=== PATIENT | male | born 2005 | race Caucasian/White ===

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

== ENCOUNTER 2024-11-01 16:00 | Emergency (ER) | payer OTHER, SELFPAY ==
[2024-11-01 16:04] VITALS: BP 143/76; PULSE 86; TEMP 36.7; O2SAT 100
--- OUTSIDE RECORDS SUMMARY | 2024-11-01 16:05 | XMS_ITS | Clinical Summary ---
Author Organization [facility] Address [address] [place] [address] Phone Care Team Providers Care Art Therapist Name Role Phone Susie Carcamo MD Primary Care Provider Allergies No known active allergies Medications No known medications Immunizations Immunization Administration Dates Next Due (ADACEL/BOOSTRIX)(10 YR UP) TDAP VACCINE, 0.5ML, IM 09/03/2022 Social History Tobacco Use Types Packs/Day Years Used Date Smoking Tobacco: Never Assessed Feeling Safe Answer Date Recorded Are you in a relationship wi th someone who hurts you emotionally and/or physically? No 09/03/2022 Sex and Gender Information Value Date Recorded Sex Assigned at Not on file Legal Sex Male 12:57 PM CDT Gender Identity Not on file Sexual Orientation Not on file Last Filed Vital Signs Vital Sign Reading Time Taken Comments Blood Pressure 100/74 09/03/2022 1:05 PM CDT Pulse 104 09/03/2022 1:05 PM CDT Temperature 36.7 C (98 F) 09/03/2022 1:05 PM CDT Respiratory Rate 17 09/03/2022 1:05 PM CDT Oxygen Saturation 100% 09/03/2022 1:05 PM CDT Inhaled Oxygen Concentration - - Weight 108.9 kg (240 lb) 09/03/2022 1:05 PM CDT Height 180.3 cm (5' 11 ) 09/03/2022 1:05 PM CDT Body Mass Index 33.47 09/03/2022 1:05 PM CDT Plan of Treatment Health Maintenance Due Date Last Done Comments CHLAMYDIA SCREENING (ANNUAL) 11-24 YEARS 09/25/2015 HPV VACCINES (1 - Male 3-dose series) 09/25/2019 HEPATITIS B VACCINES (1 of 3 - 19+ 3-dose series) 09/15 INFLUENZA VACCINE (#1) 2024 DTAP/TDAP/TD VACCINES (2 - Td or Tdap) 09/03/2032 Insurance RX INFOCROSSING Medicaid HEALTH PLAN MEDICAID HEALTH PLAN MEDICAID Care Teams Art Therapist Relationship Specialty Start Date End Date Susie Carcamo MD [address] [place] [address] PCP - General Family Practice 09/03/22
[2024-11-01] MEDS: tetanus-dipt-pertussis 0.5 mL SDV IM (16:54)
--- NOTE | 2024-11-01 17:31 | W.ED.WOUNDLC ---
HPI - Wound/Laceration General: Chief Complaint: Wound/Laceration Stated Complaint: left thumb sliced by knife Time Seen by Provider: 11/01/24 16:07 Source: patient Mode of arrival: ambulatory Limitations: no limitations History of Present Illness: Patient is a 19-year-old male who presents the emergency department after slicing his left thumb with a J-[employer] knife. States he was cutting garlic when this happened, it slipped and cut the tip of his left thumb into the nail. There is no gaping wound noted on exam, no active bleeding. Patient states he is just here to make sure it does not need stitches. States unsure if tetanus is up-to-date. No other symptoms. No neurovascular symptoms. Pain controlled at this time. Onset (ago): minute(s) Extremity Location: Left: hand (Thumb) Place: work Patient tetanus UTD: No Context: accidental Associated symptoms: Denies chills, fever(s), nausea or vomiting Related Data Home Medications ?Medication ?Instructions ?Recorded ?Confirmed acetaminophen 500 mg tablet 1,000 mg PO Q6H PRN Pain 04/03/22 10/20/22 Held on 10/04/22. Instructions: Resume on 10/09/22. ibuprofen 200 mg tablet 400 mg PO Q6H PRN Pain 04/03/22 10/20/22 Held on 10/04/22. Instructions: Resume on 10/06/22. Previous Rx's ?Medication ?Instructions ?Recorded cephalexin 500 mg capsule 500 mg PO Q6H 5 days #20 caps 11/01/24 Allergies Allergy/AdvReac Type Severity Reaction Status Date / Time No Known Allergies Allergy Verified 11/01/24 16:09 Review of Systems General: Reports: 10 or more systems reviewed and unremarkable except in HPI and below Const: Denies: fever(s) or chills Card: Denies: chest pain Resp: Denies: dyspnea GI: Denies: abdominal pain, nausea, vomiting or diarrhea Musc: Denies: extremity pain or joint pain Skin/Breast: Reports: new lesions (left thumb lac); Denies: rash, skin pain or skin tenderness Neuro: Denies: headache(s) PFSH ED PFSH: Medical History No significant past medical history Surgical History History of laparoscopic appendectomy 10/04/22 Dr. Duncan No significant past surgical history Family History Denies family history of Clotting disorder Bleeding disorder Social History Smoking and tobacco/nicotine status: never used tobacco/nicotine Physical Exam Const: COMMON NORMALS: no acute distress, average body habitus, patient oriented x3, no limitations, healthy appearing, alert and well nourished HENMT: COMMON NORMALS: normocephalic and atraumatic HEAD & SCALP: normocephalic and atraumatic Neck/C-Spine: COMMON NORMALS: full ROM, no lymphadenopathy, supple and no meningeal signs Resp: COMMON NORMALS: normal respiratory effort, No use of accessory muscles and clear to auscultation bilaterally AUSCULTATION: clear to auscultation bilaterally Cardio: COMMON NORMALS: regular rate and regular rhythm RATE: regular rate RHYTHM: regular rhythm Extremity: COMMON NORMALS: full ROM and capillary refill normal Neuro: COMMON NORMALS: patient oriented x3 SENSORIUM/ORIENTATION: Yes alert MENINGEAL SIGNS: Yes no meningeal signs Skin: COMMON NORMALS: turgor normal NARRATIVE SKIN EXAM: Very small 1 cm laceration to distal left thumb with no active bleeding, nongaping. No foreign body or contamination. There is evidence of superficial laceration minimally into the nail but no articulation with the nailbed and this is not deep. GENERAL SKIN EXAM: turgor normal Course Vital Signs: Vital signs: Vital Signs Temperature 98.1 F 11/01/24 16:04 Pulse Rate 86 11/01/24 16:04 Blood Pressure 143/76 11/01/24 16:04 Pulse Oximetry 100 11/01/24 16:04 Oxygen Delivery Me thod Room Air 11/01/24 16:04 MDM - Wound/Laceration Medical Decision Making This patient presented after slicing the tip of his thumb and into the nail with a bocce knife, though evaluating here it does not appear that it needs any wound closure, instead it is cleansed and dressed appropriately. He describes the mechanism of the injury as a use dirty knife, so prophylactic antibiotics for couple of days will be administered and his tetanus is also updated due to him being unable to tell me when he last had it updated. He had a snake bite a couple of years ago, but do not see evidence in there that he had updated at that time. He is educated on wound care, and discharge at this time. No radiology studies performed this visit Discharge Plan Discharge Patient Disposition: Home Clinical Impression: Laceration of left thumb Condition: Stable Prescriptions: New cephalexin 500 mg capsule 500 mg PO Q6H 5 Days Qty: 20 0RF No Action acetaminophen 500 mg Tablet 1,000 mg PO Q6H PRN (Reason: Pain) ibuprofen 200 mg Tablet 400 mg PO Q6H PRN (Reason: Pain) Discharge Orders: Discharge ED (Routine); Ordered 11/01/24 Ordered By: Manuel Tatum Referrals: Susie Carcamo MD [Primary Care Provider, [facility]] Patient Instructions: Patient Portal & Betty Instructions Activity Restrictions/Additional Instructions: Thumb Laceration Discharge Diagnosis: Superficial left thumb laceration involving the nail, not requiring nail removal or suture closure. Wound Care Instructions: - Keep the wound clean and dry for the first 24 hours. After this, gentle cleansing with soap and water is appropriate. - Apply a thin layer of topical antibiotic ointment (e.g., bacitracin or triple antibiotic) and cover with a non-adherent dressing. Change the dressing daily or if it becomes wet or soiled. A moist wound environment is preferred to optimize healing and reduce infection risk. - Monitor for signs of infection: increasing redness, swelling, warmth, purulent drainage, or worsening pain. If any of these occur, seek prompt medical evaluation. - Avoid submerging the thumb in water (e.g., swimming, dishwashing) until the wound has healed. - Protect the thumb from further trauma. Activity: - Limit activities that may stress or injure the thumb until healing is evident. - Gradually resume normal activities as tolerated. Antibiotic Prophylaxis: - Cephalexin 500 mg orally four times daily has been prescribed. Although the [place] [employer] and recent cohort studies do not recommend routine prophylactic antibiotics for simple, uncomplicated lacerations, this regimen may be considered in select cases based on clinical judgment or specific risk factors. Complete the prescribed course unless adverse effects occur. - Common side effects include gastrointestinal upset and, rarely, allergic reactions. Discontinue and seek care if rash, difficulty breathing, or severe diarrhea develops. Tetanus Prophylaxis: - Tetanus immunization will be updated today per CDC/ACIP guidelines. For wound management, a tetanus toxoid?containing vaccine is indicated if >= years have elapsed since the last dose, or if immunization status is unknown or incomplete. - No tetanus immune globulin is required for this wound type in an immunocompetent patient with an updated vaccine history. Follow-Up: - Return for wound check in 2?3 days or sooner if signs of infection, delayed healing, or other concerns arise. - Seek immediate care for fever, spreading redness, severe pain, or loss of function. Patient Education: - Proper wound hygiene and protection are the mainstays of infection prevention in simple lacerations. - Adherence to the prescribed antibiotic regimen and immunization schedule is important for optimal recovery. Print Language: Malay Coding Level of Care Code ED Electrolysis Investigator for Shae Waldrop
== END 2024-11-01 17:00 | disposition home or self-care (01) ==
PROVIDERS: Emergency Provider Physician Assistant; PCP Family Medicine
DX: S61.012A Laceration without foreign body of left thumb without damage to nail, initial encounter (principal); W26.0XXA Contact with knife, initial encounter
CPT/HCPCS: 90715; 99283